=== PATIENT | male | born 1975 | race Two or more races ===

== ENCOUNTER 2024-06-04 06:11 | Day surgery (SDC) | payer OTHER ==
[2024-06-04] MEDS ORDERED: CEFOXITIN SODIUM 2,000 MG VIAL IV ONE (10:30)
[2024-06-04] MEDS ORDERED: LIDOCAINE HCL 1%/EPINEPHRINE 20ML VIAL IJ ONE (10:45)
[2024-06-04] MEDS ORDERED: BUPIVACAINE HCL 30 ML VIAL IJ ONE (10:45)
[2024-06-04] MEDS ORDERED: CELECOXIB200 MG PO (11:48)
[2024-06-04] MEDS ORDERED: NEURONTIN300 MG PO (11:48)
[2024-06-04] MEDS ORDERED: MORPHINE SULFATE 4 MG/ML VIAL IV ONE (12:00)
== END 2024-06-04 13:40 | disposition home or self-care (01) ==
LOC: CIR.AMB 06:11
PROVIDERS: ATTEND Surgery
DX: D37.3 Neoplasm of uncertain behavior of appendix (principal)